=== PATIENT | male | born 1980 | race Caucasian/White ===

== ENCOUNTER 2020-01-18 11:53 | Emergency (ER) | payer BC ==
[~2020-01-18] VITALS: Ht 193 cm; Wt 125.0 kg
[2020-01-18 13:16] VITALS: BP 129/94
[2020-01-18] MEDS ORDERED: PRED20TA PO (14:22)
== END 2020-01-18 14:54 | disposition home or self-care (01) ==
LOC: ER 11:54
DX: M10.9 Gout, unspecified (principal); M79.671 Pain in right foot; Z88.0 Allergy status to penicillin; Z79.899 Other long term (current) drug therapy
CPT/HCPCS: 93971; 99284